=== PATIENT | male | born 1990 | race Caucasian/White ===

== ENCOUNTER 2017-03-09 00:11 | Emergency (ER) | payer OTHER, SELFPAY ==
[2017-03-09] MEDS ORDERED: Ibuprofen 800 MG TAB ONE (00:46)
== END 2017-03-09 00:48 | disposition home or self-care (01) ==
LOC: MADERS 00:11
DX: S46.912A Strain of unspecified muscle, fascia and tendon at shoulder and upper arm level, left arm, initial encounter (principal); W22.8XXA Striking against or struck by other objects, initial encounter
CPT/HCPCS: 99283

== ENCOUNTER 2018-01-27 21:55 | Emergency (ER) | payer OTHER ==
[2018-01-27] MEDS ORDERED: Lidocaine 1% w/Epinephrine 1:100K 30 ML VIAL ONE (22:11)
[2018-01-27] MEDS ORDERED: Adacel (T-DAP) 0.5 ML SYRINGE ONE (22:21)
[2018-01-27] MEDS ORDERED: Amoxicillin/Potassium Clav 875 MG TAB ONE (22:21)
[2018-01-27] MEDS ORDERED: Ibuprofen 800 MG TAB ONE (22:21)
[2018-01-27] MEDS ORDERED: Triple Antibiotic Oint 1 GM Packet ONE (22:42)
== END 2018-01-27 23:00 | disposition home or self-care (01) ==
LOC: MADERS 21:55
DX: S01.411A Laceration without foreign body of right cheek and temporomandibular area, initial encounter (principal); S01.451A Open bite of right cheek and temporomandibular area, initial encounter; W54.0XXA Bitten by dog, initial encounter
CPT/HCPCS: 12011; 90471; 90715; J2001

== ENCOUNTER 2022-09-17 09:26 | Emergency (ER) | payer BC, OTHER ==
[2022-09-17] MEDS ORDERED: Lidocaine 1% PF 5 ML VIAL ONE (10:18)
[2022-09-17] MEDS ORDERED: CEFAZOLIN 1 GM VIAL ONE (11:02)
[2022-09-17] MEDS ORDERED: Sterile Water 10 ML ONE (11:03)
== END 2022-09-17 11:20 | disposition home or self-care (01) ==
LOC: MADERS 09:26
DX: S60.552A Superficial foreign body of left hand, initial encounter (principal); F17.290 Nicotine dependence, other tobacco product, uncomplicated; W45.8XXA Other foreign body or object entering through skin, initial encounter
CPT/HCPCS: 10120; 96372; J0690